=== PATIENT | male | born 1970 | race Caucasian/White ===

== ENCOUNTER → 2021-01-06 | Day surgery (SDC) | payer OTHER ==
[~2021-01-06] VITALS: Ht 175.3 cm; Wt 76.8 kg
[~2021-01-06] MED LIST: ATENOLOL25 M1 PO; BREO ELLIPTA 11 EACH INH; CETIRIZINE HCL10 MG PO; ELIQUIS5 MG PO; FLUTICASONE PRO16 GM; FOLIC ACID1 M1 PO; IBUPROFEN800 M1 PO; PHENYTOIN SODI100 MG PO; SPIRONOLACTONE50 M1 PO
[2021-01-06 07:44] LABS: HGB 12.6 g/dl (13.2-18.0); MCH 34.7 pg (25.0-31.0); MCHC 34.1 g/dL (32.0-36.0); MCV 101.9 fL (78.0-100.0); MPV 9.1 fL (6.0-9.5); RBC 3.63 M/uL (4.70-6.00); RDW 14.1 % (11.5-14.0); WBC 9.1 K/uL (4.0-10.5)
[2021-01-06 08:05] LABS: ALBUMIN 3.8 g/dL (3.4-5.0); BILIRUBIN - TOTAL 0.7 mg/dL (0.2-1.0); BUN/CREAT RATIO (CALC) 17.8 RATIO; CREATININE 0.73 mg/dL (0.67-1.17); GLOBULIN (CALCULATION) 4.2 g/dL; POTASSIUM 3.3 mmol/L (3.5-5.1)
== END | disposition home or self-care (01) ==
LOC: FAS 06:58
PROVIDERS: Surgery
DX: Z12.11 Encounter for screening for malignant neoplasm of colon (principal); D12.3 Benign neoplasm of transverse colon; K57.30 Diverticulosis of large intestine without perforation or abscess without bleeding; B07.9 Viral wart, unspecified; I10 Essential (primary) hypertension; Z79.899 Other long term (current) drug therapy; Z79.01 Long term (current) use of anticoagulants; Z88.8 Allergy status to other drugs, medicaments and biological substances; Z86.718 Personal history of other venous thrombosis and embolism
CPT/HCPCS: 36415; 80053; J1610; J2250; J2704; J7120

== ENCOUNTER 2021-08-08 08:18 | Day surgery (SDC) | payer OTHER ==
[~2021-08-08] VITALS: Ht 173 cm; Wt 77.0 kg
[~2021-08-08 08:18] MED LIST changes: +DULOXETINE HCL30 MG PO; +ENOXAPARIN80 MG/0.8 SC; +HYDROXYZINE HCL25 MG PO; +LIDODERM 5%1 EACH TOP; +PAIN RELIEVER500 M1 PO; +PRILOSEC20 MG PO
[2021-08-09 05:50] LABS: BASOPHIL 0.5 % (0-2); EOSINOPHIL 1.1 % (0-5); HCT 35.3 % (42.0-52.0); HGB 11.9 g/dl (13.2-18.0); LYMPHOCYTE 11.6 % (15-48); MCH 35.2 pg (25.0-31.0); MCHC 33.7 g/dL (32.0-36.0); MCV 104.4 fL (78.0-100.0); MONOCYTE 9.2 % (0-12); MPV 8.7 fL (6.0-9.5); NEUTROPHIL 77.2 % (41-80); NRBC 0; PLT 265 K/uL (150-400); RBC 3.38 M/uL (4.70-6.00); RDW 12.8 % (11.5-14.0); WBC 13.2 K/uL (4.0-10.5)
[2021-08-09 06:21] LABS: CREATININE 0.69 mg/dL (0.67-1.17); POTASSIUM 3.8 mmol/L (3.5-5.1)
[2021-08-09] MEDS ORDERED: FEOSOL325 MG PO (08:29)
== END 2021-08-09 11:20 | disposition home or self-care (01) ==
LOC: FAS 08:18 → FOR 09:00 → FMS 10:48 → FOR 11:00 → FAS 08-09 11:20
PROVIDERS: Orthopaedic Surgery
DX: M16.11 Unilateral primary osteoarthritis, right hip (principal); I10 Essential (primary) hypertension; I73.9 Peripheral vascular disease, unspecified; J44.9 Chronic obstructive pulmonary disease, unspecified; K21.9 Gastro-esophageal reflux disease without esophagitis; F41.9 Anxiety disorder, unspecified; F17.200 Nicotine dependence, unspecified, uncomplicated; Z88.8 Allergy status to other drugs, medicaments and biological substances; Z79.891 Long term (current) use of opiate analgesic; Z79.01 Long term (current) use of anticoagulants; Z79.899 Other long term (current) drug therapy
CPT/HCPCS: 36415; 73501; 76000; 80048; 85025; 86850; 86900; 86901; 94010; 94762; 97110; 97162; 97165; 97530-GP; 97535; C1776; J0171; J0697; J1100; J1165; J1885; J2250; J2270; J2405; J2704; J2710; J2795; J3010; J7120

== ENCOUNTER 2021-09-18 17:04 | Inpatient (IN) | payer OTHER ==
[~2021-09-18] VITALS: Ht 173 cm; Wt 101.9 kg
[~2021-09-18 17:04] MED LIST changes: +FEOSOL325 MG PO; +PROAIR HFA8.5 GM INH
[2021-09-18 20:44] LABS: BASOPHIL 0.7 % (0-2); EOSINOPHIL 2.2 % (0-5); HCT 42.7 % (42.0-52.0); HGB 14.5 g/dl (13.2-18.0); LYMPHOCYTE 18.2 % (15-48); MCH 34.4 pg (25.0-31.0); MCV 101.4 fL (78.0-100.0); MPV 8.4 fL (6.0-9.5); NEUTROPHIL 71.7 % (41-80); NRBC 0; PLT 258 K/uL (150-400); RBC 4.21 M/uL (4.70-6.00); WBC 9.9 K/uL (4.0-10.5)
[2021-09-18 21:12] LABS: BUN/CREAT RATIO (CALC) 7.5 RATIO; CREATININE 0.67 mg/dL (0.67-1.17); POTASSIUM 2.7 mmol/L (3.5-5.1)
[2021-09-18 21:20] LABS: LACTIC ACID 2.6 mmol/L (0.4-1.9)
[2021-09-18 21:45] LABS: MAGNESIUM 1.1 mg/dL (1.8-2.4); PHOSPHORUS 2.5 mg/dL (2.6-4.7)
--- NOTE | 2021-09-18 23:42 | NUR ---
PATIENT ARRIVED TO FLOOR FROM ER, ALERT AND ORIENTED ABLE TO VOICE NEEDS, STATES HIS SISTER HELPS HIM AT THE HOUSE AND WILL BRING A MED LIST IN AM. CALL LIGHT IN REACH BED IN LOW POSITION.
[2021-09-19 02:21] LABS: BILIRUBIN NEGATIVE (NEGATIVE); BLOOD NEGATIVE Ery/uL (NEGATIVE); CLARITY CLEAR (CLEAR); COLOR YELLOW (YELLOW); GLUCOSE (U) NORMAL (NORMAL); LEUKOCYTES NEGATIVE Leu/uL (NEGATIVE); NITRITE NEGATIVE (NEGATIVE); PROTEIN NEGATIVE (NEGATIVE); SPECIFIC GRAVITY 1.015 (1.001-1.030)
[2021-09-19 02:38] LABS: LACTIC ACID 2.4 mmol/L (0.4-1.9)
[2021-09-19 13:41] LABS: BUN/CREAT RATIO (CALC) 6.2 RATIO; CREATININE 0.64 mg/dL (0.67-1.17); POTASSIUM 3.2 mmol/L (3.5-5.1)
--- NOTE | 2021-09-19 19:33 | NUR ---
PT ARRIVED BACK FROM SURGERY AT 1548. WOUND VAC SET AT 100MMHG WITH SCANT/MINIMAL BRIGHT RED BLOOD IN TUBING AND CANISTER. RN NOTIFIED WOUND RNJORDYN WHO CAME TO ASSESS WOUND VAC. WOUND RN REPORTED NO CONERNS AT THIS TIME. THIS RN NOTIFIED DR. MAHER AND VERIFIED WOUND VAC SETTINGS. ORDERS RECEIVED FOR WOUND VAC TO BE CHANGED NEXT ON SATURDAY. RN RELAYED THIS INFORMATION TO WOUND RN JORDYN.
[2021-09-20 06:40] LABS: BASOPHIL 0.6 % (0-2); EOSINOPHIL 0.7 % (0-5); HCT 33.7 % (42.0-52.0); HGB 11.5 g/dl (13.2-18.0); LYMPHOCYTE 10.6 % (15-48); MCH 34.8 pg (25.0-31.0); MCHC 34.1 g/dL (32.0-36.0); MCV 102.1 fL (78.0-100.0); MONOCYTE 7.5 % (0-12); MPV 8.8 fL (6.0-9.5); NRBC 0; PLT 206 K/uL (150-400); WBC 8.7 K/uL (4.0-10.5)
[2021-09-20 07:08] LABS: BUN/CREAT RATIO (CALC) 9.7 RATIO; CREATININE 0.72 mg/dL (0.67-1.17); MAGNESIUM 1.1 mg/dL (1.8-2.4); POTASSIUM 3.5 mmol/L (3.5-5.1)
[2021-09-20] MEDS ORDERED: MAG-OXIDE 400M400 MG PO (09:30)
--- NOTE | 2021-09-20 14:14 | NUR ---
PT. REQUESTED A HH TO FOLLOW HIM AT HOME. [facility] DO NOT ACCEPT [phone] WILL PROVIDE WOUND VAC AND A NURSE FOR TRAINING AND MONITORING . FAX IS [phone]. [facility] [phone] WILL PROVIDE IV ABX AND A NURSE. FAX IS [phone]. ADVISED PATIENT OF THE ABOVE INFORMATION AND HE IS IN AGREEMENT WELL HIS SISTER, SATISH.
--- NOTE | 2021-09-20 14:54 | NUR ---
ADVISED NURSE, CIRO AND DR. EVANS OF PLAN FOR DELIVERY OF WOUND VAC AND IV ABX AND PLAN TO CALL BUS FOR TRANSPORTATION HOME.
--- NOTE | 2021-09-20 15:03 | NUR ---
PT AND SPOUSE REQUESTED TO DC TO [facility]. CRISTIAN WITH [facility] HAS MET WITH THE FAMILY AND COMPLETED PAPERWORK. CHOICE FORM SIGNED AND COPY GIVEN.
--- NOTE | 2021-09-20 15:21 | NUR ---
TC NAMRATA WEAVER, SHE ADVISED THAT THE INFORMATION HAD BEEN SUBMITTED TO [facility] FOR AUTHORIZATION. SHE WILL ADVISE ME WHEN SHE RECEIVES AUTH.
[2021-09-21 07:18] LABS: BASOPHIL 0.7 % (0-2); EOSINOPHIL 3.1 % (0-5); HCT 35.1 % (42.0-52.0); HGB 11.7 g/dl (13.2-18.0); LYMPHOCYTE 17.1 % (15-48); MCH 34.6 pg (25.0-31.0); MCHC 33.3 g/dL (32.0-36.0); MCV 103.8 fL (78.0-100.0); MONOCYTE 12.7 % (0-12); NEUTROPHIL 65.8 % (41-80); NRBC 0; PLT 227 K/uL (150-400); RBC 3.38 M/uL (4.70-6.00); RDW 14.2 % (11.5-14.0); WBC 7.1 K/uL (4.0-10.5)
[2021-09-21 07:23] LABS: BUN/CREAT RATIO (CALC) 5.7 RATIO; CREATININE 0.87 mg/dL (0.67-1.17); POTASSIUM 3.6 mmol/L (3.5-5.1)
--- NOTE | 2021-09-21 13:38 | NUR ---
WOUND VAC HAS BEEN DELIVERED BY [facility]. PER SISTER, SATISH. [facility]OTH [facility] AND [facility] HAVE BEEN IN TOUCH WITH HER REGARDING THEIR SERVICES.
--- NOTE | 2021-09-22 11:27 | NUR ---
TC TO SISTER, SATISH, ADVISED HER THAT THE AUTHORIZATION FOR THE PAIN MEDICATION WAS APPROVED. SATISH STATED THAT THE NURSE WITH [facility] WAS THERE WITH THEM AND HAD TRAINED SATISH ON HOW TO ADMINISTER THE ABX. THE WOUND NURSE HAS SPOKEN WITH HER AND WILL BE THERE ON Saturday09/25/21 FOR INSTRUCTION ON THE WOUND VAC.
== END 2021-09-21 15:35 | disposition home or self-care (01) | DRG 464 ==
LOC: FER 17:04 → FMS 21:43
PROVIDERS: Family Medicine; Hospitalist; Nurse Practitioner Family; ADMIT Internal Medicine
PROC: 0JBL0ZZ Excision of Right Upper Leg Subcutaneous Tissue and Fascia, Open Approach (ICD-10-PCS; principal; 2021-09-19)
PROC: 3E00X29 Introduction of Other Anti-infective into Skin and Mucous Membranes, External Approach (ICD-10-PCS; 2021-09-19)
PROC: 02HV33Z Insertion of Infusion Device into Superior Vena Cava, Percutaneous Approach (ICD-10-PCS; 2021-09-20)
DX: T84.51XA Infection and inflammatory reaction due to internal right hip prosthesis, initial encounter (principal); M00.9 Pyogenic arthritis, unspecified; J44.1 Chronic obstructive pulmonary disease with (acute) exacerbation; D62 Acute posthemorrhagic anemia; E87.6 Hypokalemia; Z20.822 Contact with and (suspected) exposure to COVID-19; I10 Essential (primary) hypertension; G40.909 Epilepsy, unspecified, not intractable, without status epilepticus; F32.A Depression, unspecified; E86.0 Dehydration; E83.42 Hypomagnesemia; F17.210 Nicotine dependence, cigarettes, uncomplicated; K21.9 Gastro-esophageal reflux disease without esophagitis; Z98.890 Other specified postprocedural states; Z88.1 Allergy status to other antibiotic agents; Z79.01 Long term (current) use of anticoagulants; Z79.899 Other long term (current) drug therapy
CPT/HCPCS: 36415; 71045; 80048; 80202; 81003; 83605; 83735; 84100; 84145; 85025; 87040; 87070; 87205; 94010; 94640; 94760; 97162; 97166; 97530-GP; 97535; C1713; C1751; J0696; J0878; J1100; J1170; J1642; J1885; J2001; J2250; J2270; J2405; J2543; J2704; J2930; J3010; J3260; J3370; J3475; J3480; J7030; J7050; J7120; U0002